=== PATIENT | female | born 1965 | race Caucasian/White ===

== ENCOUNTER 2018-04-13 12:37 | Observation (INO) | payer OTHER ==
[~2018-04-13 12:37] MED LIST: DEXAMETHASONE SOD PHOS 4 MG/ML VIAL ONE; FAMOTIDINE/PF 20 MG/2 ML VIAL ONE; FENTANYL 250MCG/5ML VIAL ONE; LACTATED RINGERS 1,000 ML IV.SOLN IV ONE; LEVALBUTEROL HCL 1.25 MG/3 ML AMPUL.NEB NEB ONE; LIDOCAINE HCL/PF 2% 100 MG/5 ML VIAL IJ ONE; ONDANSETRON HCL/PF 4 MG/ 2ML VIAL ONE; PROPOFOL 200 MG/20 ML VIAL IV ONE; ROCURONIUM BROMIDE 10 MG/ML 5ML VIAL ONE; SEVOFLURANE 250 ML LIQUID IH ONE; SUGAMMADEX 200 mg/2mL 200 MG/2 ML VIAL IV ONE; ceFAZolin SODIUM 1 GM VIAL ONE; ePHEDrine SULFATE 50 MG/1 ML IVP ONE
[2018-04-13] MEDS ORDERED: oxyCODONE HCL 5 MG TABLET PO PRN (20:10)
[2018-04-13] MEDS ORDERED: ACETAMINOPHEN 500 MG TABLET PO PRN (20:10)
[2018-04-13] MEDS ORDERED: PROMETHAZINE HCL 25 MG in 0.9 % SODIUM CHLORIDE 50 ML IV PRN (20:10)
[2018-04-13] MEDS ORDERED: diphenhydrAMINE HCL 25 MG TABLET PO PRN (20:10)
[2018-04-13] MEDS ORDERED: DIAZEPAM 5 MG TABLET PO PRN (20:10)
[2018-04-13] MEDS ORDERED: ONDANSETRON HCL/PF 4 MG/ 2ML VIAL IVP PRN (20:10)
[2018-04-13] MEDS ORDERED: fentaNYL CITRATE/PF 100 MCG/ 2ML AMP IVP PRN (20:10)
[2018-04-13] MEDS ORDERED: KETOROLAC TROMETHAMINE 30 MG/1ML VIAL IVP PRN (20:10)
[2018-04-13] MEDS ORDERED: LEVALBUTEROL HCL 1.25 MG/3 ML AMPUL.NEB NEB PRN (20:10)
[2018-04-13] MEDS ORDERED: ZOLPIDEM TARTRATE 5 MG TABLET PO SCH (21:00)
[2018-04-13] MEDS ORDERED: LORATADINE 10 MG TABLET PO PRN (21:08)
--- NOTE | 2018-04-13 21:23 | History and Physical Report ---
History of Present Illnes - History of Present Illness Reason for Visit: LFD L5, Si History of Present Illness: Patient is a 52-year-old white female that underwent an LFD (laminotomy, foraminotomy, decompression of lumbar 5- sacrum 1. She was diagnosed with reoccurrence of herniated nucleus pulposus. She is being admitted to rule out a dura leak in which she had in the past. Patient was not reported to have any intraoperative complications. Patient is admitted for post operative care- we will get her up only to go to the bathroom otherwise she is to be in bed with head of the bed up max of 10 degrees, we will try to prevent DVT using with SCDs, she will use Incentive Spirometer to prevent resp. illnesses, and will advance diet as tolerated. She is awake and alert and has no complaints. 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 denies: Anxiety Musculoskeletal: Chronic low back pain, Other (cervicalgia) Rheumatologic: denies: Rheumatoid arthritis Infectious Disease: denies: HIV ENT: denies: Sinusitis Renal/: denies: Acute renal failure Endocrine: denies: Diabetes, Hyperthyroidism Dermatology: denies: Cellulitis - Past Surgical History Past Surgical History: Other (Cervical TDR, Lumbar LFD, Bladder, 2 knee, small tumor from left neck) - Past Social History Smoke: 1 pack per day Alcohol: None Drugs: None Lives: With Family Domestic Violence: Negative - Health Maintenance Health Maintenance: Influenza Vaccine. denies: Pneumococcal Vaccine Influenza Vaccine: Current for this Influenza Season Pneumonia Vaccine: No Resuscitation Status: Resusciation Status Resuscitation Status Full Code - Unable to Obtain History Unable to Obtain: No Review of Systems - Review of Systems Constitutional: negative: Fever, Chills Eyes: negative: pain, vision change ENT: negative: Ear Pain, Nose Pain, Throat Pain Respiratory: negative: Cough, Shortness of Breath Cardiovascular: negative: Chest Pain Gastrointestinal: negative: Nausea, Vomiting, Abdominal Pain Genitourinary: negative: Dysuria Musculoskeletal: Back Pain. negative: Neck Pain, Shoulder Pain, Arm Pain Skin: Other (surgical incision to the back) Neurological: negative: Weakness, Numbness - Medications/Allergies Allergies/Adverse Reactions: Allergies Allergy/AdvReac Type Severity Reaction Status Date / Time aspirin Allergy Verified 04/13/18 20:09 erythromycin base Allergy Verified 04/13/18 20:09 latex Allergy Verified 04/13/18 20:09 Home Medications: Home Medications Albuterol Sulfate [Proair HFA] 1 inh IH Q4 PRN 04/13/18 Citalopram Hydrobromide [Celexa] 20 mg PO HS 04/13/18 Hydrocodone Bit/Acetaminophen [Lortab] 1 each PO Q6 PRN 04/13/18 Loratadine 10 mg PO DAILY 04/13/18 Pantoprazole Sodium [Protonix] 40 mg PO DAILY 04/13/18 Tizanidine HCl 4 mg PO BID 04/13/18 Tramadol HCl [Ultram] 50 mg PO BID 04/13/18 Zolpidem Tartrate [Ambien] 10 mg PO HS 04/13/18 Current Inpatient Medications: Current Inpatient Medications Acetaminophen (Tylenol Extra Strength) 500 mg PO Q4 PRN PRN Reason: for mild pain 1-4/fever Diazepam (Valium) 5 mg PO Q8H PRN PRN Reason: Anxiety/muscle spasm Diphenhydramine HCl (Benadryl) 25 mg PO Q4 PRN PRN Reason: Itching or Pruritis Fentanyl Citrate (Duragesic) 50 mcg IVP Q2H PRN PRN Reason: Moderate pain 5-7 Stop: 04/14/18 20:09 Sodium Chloride (Normal Saline) 1,000 mls @ 150 mls/hr IV Q10H ALEKSANDRA Stop: 04/14/18 20:29 Promethazine HCl 25 mg/ Sodium (Chloride) 51 mls @ 600 mls/hr IV Q6 PRN PRN Reason: Nausea / Vomiting Stop: 04/17/18 20:09 Ketorolac Tromethamine (Toradol) 15 mg IVP Q6 PRN PRN Reason: For Mild Pain 1-4 Stop: 04/17/18 20:09 Levalbuterol HCl (Xopenex) 1.25 mg NEB Q4 PRN PRN Reason: SOA, Dyspnea, or Wheezing Stop: 04/17/18 20:09 Ondansetron HCl (Zofran 4 Mg/2 Ml) 4 mg IVP Q6H PRN PRN Reason: Nausea / Vomiting Stop: 04/17/18 20:09 Oxycodone HCl (Percolone) 10 mg PO Q4 PRN PRN Reason: For Moderate Pain 5-7 Oxycodone/Acetaminophen (Percocet 5-325 Mg Tablet) 1 each PO Q4 PRN PRN Reason: For pain 1-4 out of 10 Oxycodone/Acetaminophen (Percocet 5-325 Mg Tablet) 2 each PO Q4 PRN PRN Reason: Moderate pain 5-7 Zolpidem Tartrate (Ambien) 10 mg PO HS ALEKSANDRA Exam - Exam General: Alert, Oriented to Person, Oriented to Place, Oriented to Time, Cooperative, No acute distress HEENT: Atraumatic, PERRLA, EOMI, Mouth Mucous membr. moist/[place] Neck: Normal Range of Motion Lungs: Clear to auscultation, Normal air movement, Speaks full Sentences Cardiovascular: Regular rate, Normal S1, Normal S2 Abdomen: Normal bowel sounds, Soft, No tenderness Integumentary: Normal, [place], Warm, Dry Extremities: No cyanosis, Normal pulses, No tenderness/swelling Neurological: Normal speech, Strength Equal Bilat, Sensation intact Psych/Mental Status: Mental status NL, Mood NL, Appropriate Affect Assessment/Plan - Assessment/Plan (1) S/P lumbar spine operation Status: Acute Current Visit: Yes Assessment: Surgical site is pink, warm, dry. Dressing dry and intact. She denies any pain or discomfort. Plan: Per surgeon- pt is to lie in bed with bathroom privileges only. Head of bed elevated to max of 10 degrees. Will keep SCDs on while in bed. Will monitor neurovasculars frequently. (2) GERD (gastroesophageal reflux disease) Status: Acute Current Visit: Yes Assessment: Patient ate a quarter pounder with fries shortly after surgery once bowel sounds were present. Plan: Will continue with home medication of protonix. VTE Assessment - RISK FACTOR SCORE VTE RISK FACTOR SCORES: AGE 40-60 YEARS (Patient wearing SCDs and receiving heparin subq q 12hrs)
[2018-04-13] MEDS: oxyCODONE/ACETAMINOPHEN 5/325 TABLET PO PRN (22:09)
[2018-04-13] MEDS ORDERED: 0.9 % SODIUM CHLORIDE 1,000 ML IV ONE (22:17)
[2018-04-13] MEDS ORDERED: CITALOPRAM HYDROBROMIDE 20 MG TABLET PO SCH (23:00)
[2018-04-13] MEDS: 0.9 % SODIUM CHLORIDE 1,000 ML IV SCH ×2 (23:10→23:11)
[2018-04-14 00:46] VITALS: BMI 29.7
[2018-04-14] MEDS: oxyCODONE/ACETAMINOPHEN 5/325 TABLET PO PRN ×3 (05:37→18:15)
[2018-04-14] MEDS ORDERED: PANTOPRAZOLE SODIUM 40 MG TABLET PO SCH (07:00)
[2018-04-14 07:53] LABS: eGFR (Non-African) > 60
[2018-04-14 08:28] LABS: MONOCYTES % 10 % (0-11); SEGMENTED NEUTROPHILS % 81 % (39-79)
[2018-04-14] MEDS ORDERED: PATIENT OWN MED 1 EACH EACH PO SCH (09:00)
[2018-04-14] MEDS ORDERED: HEPARIN SODIUM 5000 UNIT/1 ML SQ SCH (09:00)
[2018-04-14] MEDS ORDERED: CITALOPRAM HYDROBROMIDE 20 MG TABLET PO SCH (09:00)
[2018-04-14] MEDS ORDERED: NICOTINE 14mg PATCH.TD24 TD SCH (16:00)
[2018-04-14 18:21] VITALS: BP 131/88
--- NOTE | 2018-04-23 11:59 | Discharge Summary ---
DATE OF ADMISSION: April 13, 2018 DATE OF DISCHARGE: April 14, 2018 DIAGNOSES ON THIS HOSPITALIZATION: Herniated nucleus pulposus. PROCEDURE DONE DURING THIS HOSPITALIZATION: Laminotomy/Foraminotomy/Decompression of lumbar L5-S1 nerve roots. SUMMARIZATION OF ADMISSION HISTORY AND PHYSICAL: This is a 52-year-old female who had presented with increasing pain down her legs. She was admitted for the aforementioned surgery. HOSPITAL COURSE: She did very well postoperatively. She was able to get up and ambulate. Dr. Chavis did recommend that she stay supine while she was in the hospital and then on returning home that she remain supine at least for the next 24 hours. She voiced agreement with this. MEDICATIONS ON DISCHARGE: She will be discharged to home with continuation of all of her home medications with the addition of some Percocet 7.5/325 mg 1 to 2 p.o. every 6 hours p.r.n. pain. DISCHARGE INSTRUCTIONS: Follow up with Dr. Chavis's office as scheduled. LONG
== END 2018-04-14 18:53 | disposition home or self-care (01) ==
LOC: OPSURG 12:37 → SOUTH 19:59
PROVIDERS: ADMIT Family Medicine; ATTEND Nurse Practitioner Family
DX: M51.17 Intervertebral disc disorders with radiculopathy, lumbosacral region (principal); M48.062 Spinal stenosis, lumbar region with neurogenic claudication
CPT/HCPCS: 80048; 85025; A9270; G0378; J1644; J7030; 63030; J0690; J1100; J2001; J2405; J2704; J7614; S0028; J7120

== ENCOUNTER 2018-06-22 05:00 | Day surgery (SDC) | payer OTHER ==
[2018-06-22] MEDS ORDERED: ceFAZolin SODIUM 1 GM VIAL ONE (08:48)
[2018-06-22] MEDS ORDERED: LACTATED RINGERS 1,000 ML IV.SOLN IV ONE (08:48)
[2018-06-22] MEDS ORDERED: LORazepam 2 MG/ML VIAL ONE (08:48)
[2018-06-22] MEDS ORDERED: DEXAMETHASONE SODIUM PHOSPHATE 10 MG/ML VIAL ONE (08:48)
[2018-06-22] MEDS ORDERED: SEVOFLURANE 250 ML LIQUID IH ONE (08:48)
[2018-06-22] MEDS ORDERED: MIDAZOLAM HCL 2 MG/2 ML VIAL ONE (08:48)
[2018-06-22] MEDS ORDERED: ROCURONIUM BROMIDE 10 MG/ML 5ML VIAL ONE (08:48)
[2018-06-22] MEDS ORDERED: SUGAMMADEX SODIUM 200 MG/2 ML VIAL IV ONE (08:48)
[2018-06-22] MEDS ORDERED: FAMOTIDINE 20 MG/2 ML VIAL ONE (08:48)
[2018-06-22] MEDS ORDERED: KETOROLAC TROMETHAMINE 30 MG/1ML VIAL ONE (08:48)
[2018-06-22] MEDS ORDERED: fentaNYL CITRATE/PF 100 MCG/2 ML INJ. ONE (08:48)
[2018-06-22] MEDS ORDERED: PROPOFOL 200 MG/20 ML VIAL IV ONE (08:48)
[2018-06-22] MEDS ORDERED: HYDROmorphone HCL/PF 2 MG/ML VIAL ONE (08:48)
[2018-06-22] MEDS ORDERED: LIDOCAINE HCL 2% PF 100MG/5ML VIAL IJ ONE (08:48)
[2018-06-22] MEDS ORDERED: FENTANYL CITRATE/PF 250 MCG/5 ML INJ. ONE (08:48)
[2018-06-22] MEDS ORDERED: LEVALBUTEROL HCL 1.25 MG/3 ML VIAL.NEB IH ONE (08:48)
[2018-06-22 12:52] VITALS: BP 145/91
== END 2018-06-22 11:33 | disposition other institution (70) ==
LOC: OPSURG 05:00
PROVIDERS: ATTEND Orthopaedic Surgery
DX: M51.27 Other intervertebral disc displacement, lumbosacral region (principal); M51.37 Other intervertebral disc degeneration, lumbosacral region
CPT/HCPCS: 22857; 36415; 86885; 86900; 86920; J0690; J1170; J1885; J2001; J2060; J2250; J2704; J3010; J7120; J7614; S0028; 82785; 86003; P9040

== ENCOUNTER 2018-06-22 05:02 | Inpatient (IN) | payer OTHER ==
[2018-06-22] MEDS ORDERED: LEVALBUTEROL NEB 1.25 MG/3 ML VIAL.NEB IH ONE (05:23)
[2018-06-22] MEDS ORDERED: LACTATED RINGERS 1,000 ML IV ONE (05:23)
[2018-06-22] MEDS ORDERED: FAMOTIDINE 20 MG/2 ML VIAL ONE (05:24)
[2018-06-22] MEDS ORDERED: HYDROmorphone HCL/PF 2 MG/ML VIAL ONE (10:12)
[2018-06-22] MEDS ORDERED: fentaNYL CITRATE/PF 100 MCG/2 ML INJ. ONE (10:30)
[2018-06-22] MEDS ORDERED: LORazepam 2 MG/ML VIAL ONE (10:52)
[2018-06-22] MEDS ORDERED: KETOROLAC TROMETHAMINE 30 MG/1ML VIAL ONE (10:55)
[2018-06-22] MEDS ORDERED: ALBUTEROL 90MCG/PUFF INHALER IH PRN (11:59)
[2018-06-22] MEDS ORDERED: IPRATROPIUM/ALBUTEROL SULFATE 3 ML AMPUL.NEB NEB PRN (12:02)
--- NOTE | 2018-06-22 12:11 | History and Physical Report ---
History of Present Illnes - History of Present Illness Reason for Visit: Chronic, worsening low back pain History of Present Illness: This is a 52 year old female patient referred to Dr. Chavis for chronic, intermittent pain in her back with radiation to her legs which she rated 10/10. She has had therapy and personal care aide without any improvement in her pain. She was evaluated by Dr. Chavis, and felt to be a candidate for total disc replacement at L5/S1, due to recurrent herniation of the nucleus pulposus at L5/S1, which was performed today. No complications noted on documentation from ER. She had been here at [facility] for Laminotomy/foraminotomy in April of 2018, and incurred an incidental durotomy which was repaired at the time of surgery by Dr Chavis. 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 denies: Anxiety Musculoskeletal: Chronic low back pain, Osteoarthritis, Other (cervicalgia) - Past Surgical History Past Surgical History: Other (Cervical TDR, Lumbar LFD, Bladder, 2 knee, small tumor from left neck) - Past Social History Smoke: 1 pack per day Alcohol: None Drugs: None Lives: With Family Domestic Violence: Negative - Health Maintenance Health Maintenance: Influenza Vaccine. denies: Pneumococcal Vaccine Pneumonia Vaccine: Yes Resuscitation Status: Resusciation Status Resuscitation Status Full Code - Unable to Obtain History Unable to Obtain: No Review of Systems - Review of Systems Constitutional: negative: Fever Eyes: negative: pain ENT: negative: Ear Pain, Ear Discharge Respiratory: negative: Cough Cardiovascular: negative: Chest Pain, Palpitations Gastrointestinal: negative: Nausea, Vomiting Genitourinary: negative: Dysuria Musculoskeletal: Back Pain. negative: Neck Pain Skin: negative: Rash Neurological: negative: Weakness, Numbness, Change in Speech - Medications/Allergies Allergies/Adverse Reactions: Allergies Allergy/AdvReac Type Severity Reaction Status Date / Time Pork/Porcine Containing Allergy Unknown Verified 04/14/18 09:57 Products aspirin Allergy Verified 04/13/18 20:09 erythromycin base Allergy Verified 04/13/18 20:09 latex Allergy Verified 04/13/18 20:09 Current Inpatient Medications: Current Inpatient Medications Albuterol Sulfate (Ventolin Hfa) 2 puff IH PRN PRN PRN Reason: Bronchodialation Citalopram Hydrobromide (Celexa) 20 mg PO DAILY ALEKSANDRA Loratadine/Pseudoephedrine Sulfate (Claritin-D 12 Hour Tablet) 1 each PO Q12 [facility] Stop: 07/06/18 12:01 Pantoprazole Sodium (Protonix) 40 mg PO 0700 [facility] Tizanidine HCl (Zanaflex) 4 mg PO BID [facility] Zolpidem Tartrate (Ambien) 10 mg PO HS [facility] Exam - Exam Vital Signs: Vital Signs (72 hours) 06/22/18 11:41 Temperature 98.1 F Pulse Rate [ 92 H Right] Respiratory 18 Rate O2 Sat by Pulse 92 Oximetry General: Alert, Oriented to Person, Oriented to Place, Moderate distress (due to back pain/abdominal pain) HEENT: Atraumatic, PERRLA, EOMI Neck: No: Stridor, Rigidity Lungs: Clear to auscultation, Normal air movement, Speaks full Sentences Cardiovascular: Regular rate, Normal S1, Normal S2 Murmur: No: Systolic Murmur Abdomen: Normal bowel sounds, Other (Incision has very minimal drainage) Genitourinary: No: Other Male Genitourinary: No: Other Female Genitourinary: No: Other Integumentary: Normal, [place], Warm, Dry Extremities: No clubbing, No cyanosis Neurological: Normal speech. No: Generalized Weakness Psych/Mental Status: Mental status NL Assessment/Plan - Assessment/Plan (1) S/P lumbar spine operation Status: Acute Current Visit: No Assessment: S/P TDR at L5/S1 for recurrent herniated lumbar disc Plan: PT/OT (2) Smoker Status: Acute Current Visit: Yes Assessment: Added 21 mg nicotine patch (3) Insomnia Status: Acute Current Visit: Yes Qualifiers: Insomnia type: primary Qualified Code(s): F51.01 - Primary insomnia Assessment: Continue Ambien (4) GERD (gastroesophageal reflux disease) Status: Acute Current Visit: No Assessment: Continue Protonix VTE Assessment - RISK FACTOR SCORE VTE RISK FACTOR SCORES: AGE 40-60 YEARS, ANTICIPATED BED CONFINEMENT OR IMMOBILIZATION > 24 HOURS (On heparin 5000 units sc q12h)
[2018-06-22] MEDS: PANTOPRAZOLE SODIUM 40 MG TABLET.DR PO SCH (12:15)
[2018-06-22] MEDS: NICOTINE 21mg 1 EACH PATCH.TD24 TD SCH (12:16)
[2018-06-22 12:23] VITALS: BMI 31.4
[2018-06-22] MEDS: POTASSIUM CHLOR 20 MEQ D51/2NS 1,000 ML IV SCH ×2 (12:44→23:18)
[2018-06-22] MEDS: CEFAZOLIN SODIUM/DEXTROSE,ISO 1 GM/50 ML PIGGYBACK IV SCH ×2 (16:06→23:16)
[2018-06-22] MEDS: oxyCODONE/ACETAMINOPHEN 5/325 TABLET PO PRN ×2 (19:11→21:28)
[2018-06-22] MEDS: fentaNYL CITRATE/PF 100 MCG/2 ML INJ. IVP PRN (19:18)
[2018-06-22] MEDS: TIZANIDINE HCL 4 MG TABLET PO SCH (21:16)
[2018-06-22] MEDS: ZOLPIDEM TARTRATE 5 MG TABLET PO SCH (21:16)
[2018-06-22] MEDS: HEPARIN SODIUM 5000 UNIT/1 ML SQ SCH (21:19)
[2018-06-22] MEDS: LORATADINE/PSEUDOEPHEDRINE 1 EACH TAB.ER.12H PO SCH (21:21)
[2018-06-23] MEDS: ONDANSETRON HCL/PF 4 MG/ 2ML VIAL IVP PRN ×2 (00:12→06:26)
[2018-06-23] MEDS: fentaNYL CITRATE/PF 100 MCG/2 ML INJ. IVP PRN ×2 (01:51→07:30)
[2018-06-23] MEDS: oxyCODONE/ACETAMINOPHEN 5/325 TABLET PO PRN ×6 (04:36→23:30)
[2018-06-23] MEDS ORDERED: PANTOPRAZOLE SODIUM 40 MG TABLET.DR PO SCH (07:00)
[2018-06-23 07:39] LABS: MEAN CORPUSCULAR HEMOGLOBIN 30.8 pg (28.0-34.0)
[2018-06-23 07:40] LABS: BASOPHILS % 0.9 (0.0-1.5); MONOCYTES % 7.9 % (0.0-11.0); NEUTROPHILS # 12.7 # k/uL (1.4-7.7)
[2018-06-23] MEDS ORDERED: CITALOPRAM HYDROBROMIDE 20 MG TABLET PO SCH (09:00)
[2018-06-23] MEDS: NICOTINE 21mg 1 EACH PATCH.TD24 TD SCH (09:22)
[2018-06-23] MEDS: HEPARIN SODIUM 5000 UNIT/1 ML SQ SCH ×4 (09:22→20:53)
[2018-06-23] MEDS: LORATADINE/PSEUDOEPHEDRINE 1 EACH TAB.ER.12H PO SCH ×2 (09:22→20:50)
[2018-06-23] MEDS: TIZANIDINE HCL 4 MG TABLET PO SCH ×2 (09:22→20:51)
--- NOTE | 2018-06-23 10:31 | Inpatient Progress Note ---
Subjective - Required Recertification Statement I anticipate X number of days because-include discharge plan: 1 - Review of Systems Events since last encounter: Kanwal is seen today for post op visit after TDR. She initially ate well post operatively, however she vomited up her supper last evening and has only been able to keep down part of a cup of pudding this morning. She continues to feel nauseated. Her vital signs are stable. Post op Hgb is 13.4. BMP is pending. General: Denies: Chills, Night Sweats HEENT: Denies: Head Aches Pulmonary: Denies: Dyspnea, Cough Cardiovascular: Denies: Chest Pain Gastrointestinal: Nausea, Vomiting, Abdominal Pain (mild) Genitourinary: Denies: Dysuria, Frequency Musculoskeletal: Leg Pain. Denies: Neck Pain, Shoulder Pain, Arm Pain Neurological: Weakness. Denies: Change in Speech Objective - Exam Vitals and I&O: Vital Signs Temp 96.8 F L 06/23/18 08:45 Pulse 69 06/23/18 08:45 Resp 18 06/23/18 09:26 BP 118/65 06/23/18 08:45 Pulse Ox 92 06/23/18 08:45 Intake & Output 06/22/18 06/22/18 06/23/18 11:59 23:59 11:59 Intake Total 1540 310 Output Total 900 650 Balance 640 -340 Weight 91.172 kg Intake: IV 540 160 left hand 540 160 Oral 1000 150 Output: Urine 900 450 Emesis 200 Other: Voiding Method Toilet Toilet Toilet # Voids 0 1 # Bowel Movements 0 General: Alert, Oriented to Person, Oriented to Place, Oriented to Time, Mild distress (due to nausea), Obese HEENT: Atraumatic, PERRLA, EOMI Neck: Supple, No JVD, No thyromegaly Lungs: Clear to auscultation, Normal air movement, Speaks full Sentences Cardiovascular: Regular rate, Normal S1, Normal S2 Abdomen: Normal bowel sounds, Other (Mild lower abdominal tenderness) Extremities: No clubbing, No cyanosis Skin: Normal, [place], Warm Neurological: Normal speech, Strength Equal Bilat Psych/Mental Status: Mental status NL - Results Results: Laboratory Results WBC 17.60 K/ul (4.00-12.00) H 06/23/18 Unknown RBC 4.36 M/ul (3.90-5.20) 06/23/18 Unknown Hgb 13.4 g/dL (12.0-16.0) 06/23/18 Unknown Hct 39.9 % (34.5-46.5) 06/23/18 Unknown MCV 92.0 fl (80.0-100.0) 06/23/18 Unknown MCH 30.8 pg (28.0-34.0) 06/23/18 Unknown MCHC 33.6 g/dL (30.0-36.0) 06/23/18 Unknown RDW 12.7 % (11.3-14.3) 06/23/18 Unknown Plt Count 373 K/mm3 (130-400) 06/23/18 Unknown Neut % (Auto) 72.3 % (39.0-79.0) 06/23/18 Unknown Lymph % (Auto) 17.9 % (16.0-50.0) 06/23/18 Unknown [place] % (Auto) 7.9 % (0.0-11.0) 06/23/18 Unknown Eos % (Auto) 1.0 % (0.0-6.8) 06/23/18 Unknown Baso % (Auto) 0.9 (0.0-1.5) 06/23/18 Unknown Neut # (Auto) 12.7 # k/uL (1.4-7.7) H 06/23/18 Unknown Lymph # (Auto) 3.2 # k/uL (0.6-4.0) 06/23/18 Unknown [place] # (Auto) 1.4 # k/uL (0.0-0.9) H 06/23/18 Unknown Eos # (Auto) 0.2 # k/uL (0.0-0.6) 06/23/18 Unknown Baso # (Auto) 0.2 # k/uL (0.0-0.5) 06/23/18 Unknown Assessment/Plan - Assessment/Plan (1) S/P lumbar spine operation Status: Acute Current Visit: No Assessment: Now with postoperative nausea and vomiting. No apparent surgical complications Plan: Will ambulate today Zofran for nausea May need to stay overnight if nausea continues (2) Smoker Status: Acute Current Visit: Yes Assessment: She is on a 21 mg patch (nicotine) (3) Insomnia Status: Acute Current Visit: Yes Qualifiers: Insomnia type: primary Qualified Code(s): F51.01 - Primary insomnia Assessment: Stable (4) GERD (gastroesophageal reflux disease) Status: Acute Current Visit: No Assessment: Continue Protonix
[2018-06-23 10:35] LABS: eGFR (Non-African) > 60
[2018-06-23] MEDS: PANTOPRAZOLE SODIUM 40 MG TABLET.DR PO SCH (12:58)
[2018-06-23] MEDS: POTASSIUM CHLOR 20 MEQ D51/2NS 1,000 ML IV SCH (15:21)
[2018-06-23] MEDS ORDERED: ONDANSETRON HCL 4 MG TAB.RAPDIS PO PRN (15:50)
[2018-06-24] MEDS: ZOLPIDEM TARTRATE 5 MG TABLET PO SCH (00:48)
[2018-06-24] MEDS ORDERED: MAGNESIUM, ALUMINUM HYDROXIDE 30 ML UDC PO ONE ×2 (04:26)
[2018-06-24] MEDS ORDERED: NITROGLYCERIN 0.4 MG TAB.SUBL SL ONE ×2 (04:35→04:37)
[2018-06-24] MEDS ORDERED: 0.9 % SODIUM CHLORIDE 1,000 ML IV ONE (05:07)
[2018-06-24] MEDS: oxyCODONE/ACETAMINOPHEN 5/325 TABLET PO PRN (05:13)
--- NOTE | 2018-06-24 05:37 | Discharge Summary ---
Discharge Summary - Discharge Sumary History of Present Illness: This is a 52 year old female patient referred to Dr. Chavis for chronic, intermittent pain in her back with radiation to her legs which she rated 10/10. 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 She was evaluated by Dr. Chavis, and felt to be a candidate for total disc replacement at L5/S1, due to recurrent herniation of the nucleus pulposus at L5/S1, which was performed today. No complications noted on documentation from ER. She had been here at [facility] for Laminotomy/foraminotomy in April of 2018, and incurred an incidental durotomy which was repaired at the time of surgery by Dr Chavis. Condition at Discharge: Guarded Home Medications: Ambulatory Orders Medication Instructions Recorded Albuterol Sulfate [Proair HFA] 1 inh IH Q4 PRN 04/13/18 Citalopram Hydrobromide [Celexa] 20 mg PO HS 04/13/18 Hydrocodone Bit/Acetaminophen 1 each PO Q6 PRN 04/13/18 [Lortab] Loratadine 10 mg PO DAILY 04/13/18 Pantoprazole Sodium [Protonix] 40 mg PO DAILY 04/13/18 Tizanidine HCl 4 mg PO BID 04/13/18 Tramadol HCl [Ultram] 50 mg PO BID 04/13/18 Zolpidem Tartrate [Ambien] 10 mg PO HS 04/13/18 Consultations this Visit: None Procedures this Visit: None Allergies/Adverse Reactions: Allergies Allergy/AdvReac Type Severity Reaction Status Date / Time Pork/Porcine Containing Allergy Unknown Verified 04/14/18 09:57 Products aspirin Allergy Verified 04/13/18 20:09 erythromycin base Allergy Verified 04/13/18 20:09 latex Allergy Verified 04/13/18 20:09 Patient Problems: Current Active Problems Problem Status Onset Insomnia Acute Smoker Acute Discharge Summary: Patient developed some nausea post op that resolved with antiemetics. She refused her heparin saying "I don't need it." On the morning of post op day 2 she developed chest pain radiating to her back which was worse with deep breathing. No SOB or nausea. EKG showed anterolateral STEMI with TrI 27, CK 467 and CKMB 21. Nitro was given that relieved pain to 2 at rest and 8 with deep breathing. VS stable. Cardiology at [facility] consulted. They requested no other meds due to recent surgery. 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 Hospital Course: Discharge Dx. STEMI. s/p lumbar disc replacment
[2018-06-24 06:38] VITALS: BP 122/79
== END 2018-06-24 05:40 | disposition short-term general hospital (02) | DRG 948 ==
LOC: OPSURG 05:02 → OBSVTOIN 11:34 → UNDOADMIN 11:34 → INTOOBSV 11:34 → SOUTH 11:34 → UNDODISIN 06-24 05:40
PROVIDERS: ADMIT Family Medicine; ATTEND Family Medicine
DX: G89.18 Other acute postprocedural pain (principal); R11.0 Nausea; K21.9 Gastro-esophageal reflux disease without esophagitis; R07.89 Other chest pain
CPT/HCPCS: 36415; 80048; 82550; 82553; 84484; 85025; 99231; 99238; J1170; J1644; J1885; J2060; J2405; J3010; J7614; A9270-GY; G0379; J7030; J7070; J7120; S1016